=== PATIENT | female | born 1945 | race Caucasian/White ===

== ENCOUNTER → 2019-07-09 10:56 | Outpatient (CLI) | payer MEDICARE, BC, SELFPAY ==
[2019-07-09 11:44] LABS: Cholesterol 290 mg/dL (140-199); HDL Cholesterol 91 mg/dL (40-60); LDL Cholesterol Calculated 181 mg/dL (<100); Triglycerides 90 mg/dL (35-150)
[2019-07-09 11:46] LABS: Hemoglobin A1C% w Est Avg Glu 4.6 % (4.0-6.0)
== END ==
PROVIDERS: Visit Provider Family Medicine
DX: Z13.220 Encounter for screening for lipoid disorders (principal)
CPT/HCPCS: 36415; 80061; 83036

== ENCOUNTER → 2020-01-13 10:37 | Outpatient (CLI) | payer MEDICARE, BC, SELFPAY ==
[2020-01-13 11:59] LABS: Add Manual Diff / Slide Review NO; Basophils Absolute Auto 0 /uL (0-100); Basophils Percent Auto 0.7 % (0-2); Eosinophils Absolute Auto 100 /uL (0-450); Eosinophils Percent Auto 2.3 % (2-4); Hematocrit 35.7 % (36-46); Hemoglobin 12.1 g/dL (12.0-16.0); Lymphocytes Absolute Auto 1100 /uL (1100-4500); Lymphocytes Percent Auto 21.1 % (25-40); Mean Corpuscular HGB Conc 33.9 % (30-36); Mean Corpuscular Hemoglobin 31.9 PG (26-34); Mean Corpuscular Volume 94.2 fL (80-100); Monocytes Absolute Auto 500 /uL (0-900); Monocytes Percent Auto 9.1 % (3-14); Neutrophils Absolute Auto 3500 /uL (1500-7000); Neutrophils Percent Auto 66.8 % (50-75); Platelet Count 191 X10^3/uL (150-400); Red Blood Cell Count 3.79 X10^6/uL (4.0-5.2); Red Cell Distribution Width 13.8 % (11.6-14.8); White Blood Cell Count 5.2 X10^3/uL (4.5-11.0)
[2020-01-13 12:13] LABS: Hemoglobin A1C% w Est Avg Glu 4.5 % (4.0-6.0)
[2020-01-13 12:43] LABS: Alanine Aminotransferase 18 IU/L (<35); Albumin 4.2 g/dL (3.5-5.0); Albumin Globulin Ratio 1.9 (1.0-2.8); Alkaline Phosphatase 109 U/L (38-126); Aspartate Aminotransferase 27 IU/L (14-36); BUN Creatinine Ratio 30.8 (6-22); Bilirubin Total 0.3 mg/dL (0.2-1.3); Blood Urea Nitrogen 28 mg/dL (7-17); Calcium 9.2 mg/dL (8.4-10.2); Carbon Dioxide 26 mmol/L (22-32); Chloride 98 mmol/L (98-107); Cholesterol 228 mg/dL (140-199); Estimated Glomerular Filt Rate > 60.0 mL/min (>60); Globulin 2.2 g/dL (1.7-4.1); Glucose 87 mg/dL (80-110); HDL Cholesterol 81 mg/dL (40-60); HEMOLYSIS < 15 (0-50); LDL Cholesterol Calculated 135 mg/dL (<100); Sodium 130 mmol/L (137-145); Total Protein 6.4 g/dL (6.3-8.2); Triglycerides 60 mg/dL (35-150)
[2020-01-13 12:47] LABS: Potassium 5.5 mmol/L (3.4-5.1)
== END ==
PROVIDERS: Referring Provider Family Medicine; Visit Provider Family Medicine
DX: D64.9 Anemia, unspecified (principal); E78.5 Hyperlipidemia, unspecified; I10 Essential (primary) hypertension
CPT/HCPCS: 36415; 80053; 80061; 83036; 85025

== ENCOUNTER → 2020-04-28 14:22 | Outpatient (CLI) | payer MEDICARE, BC, SELFPAY ==
[2020-04-28 16:06] LABS: Alanine Aminotransferase 19 IU/L (<35); Albumin 4.5 g/dL (3.5-5.0); Albumin Globulin Ratio 1.9 (1.0-2.8); Alkaline Phosphatase 112 U/L (38-126); Aspartate Aminotransferase 26 IU/L (14-36); BUN Creatinine Ratio 37.5 (6-22); Bilirubin Total 0.3 mg/dL (0.2-1.3); Blood Urea Nitrogen 30 mg/dL (7-17); Calcium 9.4 mg/dL (8.4-10.2); Carbon Dioxide 23 mmol/L (22-32); Chloride 101 mmol/L (98-107); Estimated Glomerular Filt Rate > 60.0 mL/min (>60); Globulin 2.4 g/dL (1.7-4.1); Glucose 98 mg/dL (80-110); HEMOLYSIS < 15 (0-50); Phenytoin / Dilantin 15.3 ug/mL (10-20); Sodium 130 mmol/L (137-145); Total Protein 6.9 g/dL (6.3-8.2)
[2020-04-28 16:20] LABS: Potassium 5.5 mmol/L (3.4-5.1)
[2020-05-02 17:08] LABS: Levetiracetam Keppra 18.8 ug/mL (10.0-40.0)
== END ==
PROVIDERS: PCP Family Medicine; Referring Provider Family Medicine; Visit Provider Family Medicine
DX: I10 Essential (primary) hypertension (principal); R56.9 Unspecified convulsions
CPT/HCPCS: 36415; 80053; 80177; 80185

== ENCOUNTER → 2020-05-31 13:13 | Outpatient (CLI) | payer MEDICARE, BC, SELFPAY ==
[2020-05-31 13:46] LABS: COVID19 -Nasal RAPID Negative (Negative)
== END ==
PROVIDERS: PCP Family Medicine; Visit Provider Family Medicine
DX: R05 Cough (principal); Z11.8 Encounter for screening for other infectious and parasitic diseases
CPT/HCPCS: 87635

== ENCOUNTER → 2020-05-31 14:41 | Outpatient (CLI) | payer MEDICARE, BC, SELFPAY ==
--- NOTE | 2020-05-31 14:43 | DI.RAD.S_ITS ---
PROCEDURE: XR CHEST 2V INDICATIONS: Persistent and progressive productive cough TECHNIQUE: 2 views of the chest were acquired. COMPARISON: None. FINDINGS: Surgical changes and devices: None. Lungs and pleura: Lungs are clear. No pleural effusions or pneumothorax. Mediastinum: Mediastinal contours are normal. Heart size is normal. Bones and chest wall: No suspicious bony abnormalities. Soft tissues appear unremarkable. IMPRESSION: Normal for age, source of current cough symptoms is not seen. Dictated by: Dorian Lew M.D. on 05/31/2020 at 15:50 Approved by: Dorian Lew M.D. on 05/31/2020 at 15:50
== END ==
PROVIDERS: PCP Family Medicine; Referring Provider Family Medicine; Visit Provider Family Medicine
DX: J20.8 Acute bronchitis due to other specified organisms (principal); B96.89 Other specified bacterial agents as the cause of diseases classified elsewhere; R05 Cough; Z11.8 Encounter for screening for other infectious and parasitic diseases
CPT/HCPCS: 71046; 87635

== ENCOUNTER 2020-06-15 15:53 | Emergency (ER) | payer MEDICARE, BC, SELFPAY ==
[2020-06-15] VITALS (11 sets, daily range): BP systolic 178–211; BP diastolic 66–90; PULSE 70–80; RESP 12–19; TEMP 37.2; O2SAT 97–98
[2020-06-15 16:13] LABS: Add Manual Diff / Slide Review NO; Basophils Absolute Auto 100 /uL (0-100); Basophils Percent Auto 1.6 % (0-2); Eosinophils Absolute Auto 100 /uL (0-450); Eosinophils Percent Auto 1.5 % (2-4); Hematocrit 36.6 % (36-46); Hemoglobin 12.3 g/dL (12.0-16.0); Lymphocytes Absolute Auto 900 /uL (1100-4500); Lymphocytes Percent Auto 19.5 % (25-40); Mean Corpuscular HGB Conc 33.7 % (30-36); Mean Corpuscular Hemoglobin 32.4 PG (26-34); Mean Corpuscular Volume 96.2 fL (80-100); Monocytes Absolute Auto 400 /uL (0-900); Neutrophils Absolute Auto 3300 /uL (1500-7000); Neutrophils Percent Auto 69.4 % (50-75); Platelet Count 170 X10^3/uL (150-400); Red Blood Cell Count 3.81 X10^6/uL (4.0-5.2); Red Cell Distribution Width 14.2 % (11.6-14.8); White Blood Cell Count 4.7 X10^3/uL (4.5-11.0)
--- NOTE | 2020-06-15 16:24 | ED.GENADULT ---
HPI - General Adult General Chief complaint: Hypertension Stated complaint: ELEVATED BP Time Seen by Provider: 06/15/20 15:55 Source: patient Mode of arrival: Wheelchair Limitations: no limitations History of Present Illness HPI narrative: Patient is a 75-year-old female. 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 She found this out earlier this year. She states that she was switched to different chemotherapy medications after this was discovered. She states these chemotherapy medicines increased her blood pressure. She has been struggling with increased blood pressure since that time. She states that at baseline her systolic blood pressure is in the 180s range. She is on medications for these in this medicine has changed recently. She states she has been taking her medications as directed. Over the past couple days she has had occasional readings where her systolic blood pressure has been greater than 200. She states that when it is that elevated she does get somewhat lightheaded. She denies any chest pain. She has baseline dyspnea on exertion. She has some swelling in her right hand and in her toes on bilateral feet. She thinks that potentially there has been a mistake on the amount of blood pressure medicines that she is supposed to be taking. States that for an extended period of time she has been on 20 mg of lisinopril when she called to refill at the pharmacy stated that they had a prescription for her of 20 mg and also 5 mg tablets. Last time she was at her primary doctor she was told to increase her lisinopril to 10 mg. She thinks that potentially there was a mistake and she is not on a knife of this medication. She contacted the nurse advice line today regarding her blood pressure was informed to come to the emergency department. Related Data Home Medications Medication Instructions Recorded Confirmed acetaminophen 325 mg capsule 325 mg PO ONCE PRN 06/18/19 05/31/20 aspirin 81 mg tablet,delayed 81 mg PO DAILY 06/18/19 05/31/20 release bevacizumab 25 mg/mL intravenous IV Q3W ml 06/18/19 05/31/20 solution cholecalciferol (vitamin D3) 50 50 mcg PO DAILY 06/18/19 05/31/20 mcg (2,000 unit) capsule docusate sodium 100 mg capsule 100 mg PO BID 06/18/19 05/31/20 sennosides 8.6 mg capsule 8.6 mg PO BID PRN 06/18/19 05/31/20 spironolactone 25 mg tablet 25 mg PO tab 03/31/20 05/31/20 Previous Rx's Medication Instructions Recorded atorvastatin 40 mg tablet 40 mg PO BEDTIME #90 tab 08/20/19 amlodipine 10 mg tablet 10 mg PO DAILY #90 tab 01/17/20 levothyroxine 75 mcg tablet 75 mcg PO DAILY #90 tab 01/17/20 olanzapine 5 mg tablet 5 mg PO BID #180 tab 01/31/20 oxcarbazepine 150 mg tablet 225 mg PO DAILY #135 tab 01/31/20 lorazepam 0.5 mg tablet 0.5 mg PO BID PRN #20 tab 03/06/20 cetirizine 10 mg tablet See Rx Instructions .ROUTE 03/31/20 .COMPLEX #90 tab escitalopram oxalate 5 mg tablet 5 mg PO DAILY #90 tab 03/31/20 metoprolol tartrate 25 mg tablet 25 mg PO BID #180 tab 03/31/20 phenytoin sodium extended 100 mg 100 mg PO BID #270 cap 03/31/20 capsule levetiracetam 500 mg tablet 500 mg PO BID #180 tab 04/28/20 clarithromycin 500 mg tablet 500 mg PO BID #14 tab 05/31/20 lisinopril 10 1 tab PO DAILY #90 tab 06/13/20 mg-hydrochlorothiazide 12.5 mg tablet Allergies Allergy/AdvReac Type Severity Reaction Status Date / Time cephalexin Allergy Severe Hives Verified 05/31/20 13:11 lithium Allergy Severe Anaphylaxis Verified 05/31/20 13:11 ofloxacin [From Floxin] Allergy Severe Rash Verified 05/31/20 13:11 scopolamine Allergy Severe blisters Verified 05/31/20 13:11 [From Transderm-Scop] Sulfa (Sulfonamide Allergy Severe Rash Verified 05/31/20 13:11 Antibiotics) chlorthalidone Allergy Mild Itching Verified 05/31/20 13:11 all over divalproex sodium AdvReac Severe hair loss Verified 05/31/20 13:11 [From Depakote] Review of Systems Constitutional Constitutional: Denies fever(s) and Denies headache(s) Eyes Eyes: Denies change in vision ENT Ears, Nose, Mouth, and Throat: Reports dizziness and Denies headache(s) Cardiovascular Cardiovascular: Denies chest pain and Reports dyspnea on exertion Respiratory Respiratory: Reports dyspnea on exertion Gastrointestinal Gastrointestinal: Denies abdominal pain and Denies nausea Musculoskeletal Musculoskeletal: Denies arthralgias and Denies myalgias Integumentary/Breasts Skin/Breast: Denies rash Neurologic Neurologic: Reports dizziness and Denies headache(s) Hematologic/Lymphatic Hematologic/Lymphatic: Denies easy bleeding and Denies easy bruising Patient History Medical History Acute bacterial bronchitis Anemia (~2014) Bipolar disorder (~1985) Chicken pox Hearing loss Hyperlipidemia Hypertension Hyponatremia Measles Metastatic malignant neoplasm to ovary (~2013) Partial bilateral paralysis Seasonal allergic rhinitis Seizures (~2016) Skin cancer Surgical History Anesthesia H/O brain surgery H/O section H/O: hysterectomy Hx of tonsillectomy Previous back surgery S/P D&C (status post dilation and curettage) Family History (Updated 07/03/19 @ 19:41 by Indy Lambert) Father Cancer Mother Cancer Sister Cancer Social History Smoking Status: Never smoker alcohol intake: former substance use type: does not use Smoking Status: Never smoker alcohol intake frequency: 0-2 drinks per day Substance Use Type: does not use Exam Initial Vital Signs Initial Vital Signs: Vital Signs Pulse Rate 80 06/15/20 16:00 Respiratory Rate 18 06/15/20 16:00 Blood Pressure 195/86 H 06/15/20 16:00 Pulse Oximetry 97 06/15/20 16:00 Const General: cooperative and comfortable HENMT Head: normal to inspection and normocephalic Resp Effort & Inspection: normal respiratory effort Auscultation: clear to auscultation bilaterally Cardio Rate: regular rate Rhythm: regular rhythm GI Palpation: soft Skin Lesions: no lesions Rashes: no rashes Neuro General: patient alert, patient awake and patient oriented x3 Cognition: normal cognition Speech: speech normal Extrem General: normal to inspection and edema (Bilateral toes) Psych Appearance: well kempt Course Orders Ordered: ED Orders 06/15/20 16:06 Complete Blood Count AUTO DIFF Stat Comprehensive Metabolic Panel Stat Lipase Stat NT-proBNP (BNP-Adult 18+) Stat EKG-12 Lead Stat Vital Signs Vital signs: Vital Signs - 8 hr 06/15/20 16:00 06/15/20 16:29 06/15/20 16:30 Temperature Pulse Rate 80 76 75 Respiratory Rate 18 Blood Pressure 195/86 H 211/90 H Pulse Oximetry 97 97 98 06/15/20 16:34 06/15/20 16:39 06/15/20 16:40 Temperature 98.9 F Pulse Rate 70 77 78 Respiratory Rate 18 17 19 Blood Pressure 211/90 H 197/85 H Pulse Oximetry 97 98 97 06/15/20 16:50 06/15/20 16:51 Temperature Pulse Rate 72 73 Respiratory Rate 15 15 Blood Pressure 178/66 H Pulse Oximetry 98 98 Medical Decision Making Medical Records Medical records reviewed: Yes I reviewed the patient's medical records. Lab Data Lab results reviewed: Yes I reviewed the patient's lab results. Result diagrams: 06/15/20 16:06 06/15/20 16:06 Labs: Lab Results 06/15/20 06/15/20 06/15/20 Range/Units 16:06 16:06 16:06 WBC 4.7 (4.5-11.0) X10^3/uL RBC 3.81 L (4.0-5.2) X10^6/uL Hgb 12.3 (12.0-16.0) g/dL Hct 36.6 (36-46) % MCV 96.2 (80-100) fL MCH 32.4 (26-34) PG MCHC 33.7 (30-36) % RDW 14.2 (11.6-14.8) % Plt Count 170 (150-400) X10^3/uL Neut % (Auto) 69.4 (50-75) % Lymph % (Auto) 19.5 L (25-40) % [place] % (Auto) 8.0 (3-14) % Eos % (Auto) 1.5 L (2-4) % Baso % (Auto) 1.6 (0-2) % Neut # (Auto) 3300 (4488-0433) /uL Lymph # (Auto) 900 L (5966-8129) /uL [place] # (Auto) 400 (0-900) /uL Eos # (Auto) 100 (0-450) /uL Baso # (Auto) 100 (0-100) /uL Sodium 137 (137-145) mmol/L Potassium 5.1 (3.4-5.1) mmol/L Chloride 107 (98-107) mmol/L Carbon Dioxide 28 (22-32) mmol/L BUN 25 H (7-17) mg/dL Creatinine 0.79 (0.52-1.04) mg/dL Estimated GFR > 60.0 (>60) mL/min BUN/Creatinine Ratio 31.6 H (6-22) Glucose 107 (80-110) mg/dL Calcium 9.0 (8.4-10.2) mg/dL Total Bilirubin 0.4 (0.2-1.3) mg/dL AST 28 (14-36) IU/L ALT 25 (<35) IU/L Alkaline Phosphatase 96 (38-126) U/L NT-Pro-B Natriuret Pep 205 (<450) pg/mL Total Protein 6.5 (6.3-8.2) g/dL Albumin 4.0 (3.5-5.0) g/dL Globulin 2.5 (1.7-4.1) g/dL Albumin/Globulin Ratio 1.6 (1.0-2.8) Lipase 584 H (23-300) U/L ECG Data Attestation: I personally reviewed and interpreted this ECG as follows: Prior ECG tracings: not available for review Interpretation: Sinus rhythm Ventricular rate is 77 Left axis deviation Normal QRS Normal QTC No ST T wave changes MDM Narrative Medical decision making narrative: Patient shortness of breath/dyspnea on exertion is not new for her. She has very mild swelling to the toes of bilateral feet. She was hypertensive upon arrival however this improved without any intervention. Patient's labs and EKG are unremarkable. No signs of end-organ dysfunction secondary to the hypertension. Appears to be some issues with the amount of lisinopril that she is supposed to be taking. She initially was taken 20 mg but then it was decreased to 5 mg and then hydrochlorothiazide was added. She is unsure exactly how much she is supposed to take. Review of her primary doctor's note states that she should be on 5 mg. Informed her that she needed to contact her primary doctor's office to discuss the proper dosing of this medicine. It could potentially have been decreased because she was having a cough but I am unsure this. We did discuss high blood pressure. We did discuss things that she should return to the emergency department for. She is going to contact her primary doctor. She expressed understanding and agreement this plan. Discharge Plan Departure Patient Disposition: Home Clinical Impression: Hypertension Instructions: DI for High Blood Pressure Activity Restrictions/Additional Instructions: Recommend that you continue all of your medications as you are taking them currently. I do recommend that you contact your primary doctor's office tomorrow to discuss the proper dose of lisinopril that she should be taking. Take her blood pressure at home like we discussed. Return to the emergency department for any new or worsening symptoms Prescriptions: No Action oxcarbazepine 150 mg tablet 225 mg PO DAILY Qty: 135 RF: 2 olanzapine 5 mg tablet 5 mg PO BID Qty: 180 RF: 2 lorazepam 0.5 mg tablet 0.5 mg PO BID PRN (Reason: anxiety) Qty: 20 RF: 0 lisinopril-hydrochlorothiazide 10-12.5 mg tablet 1 tab PO DAILY Qty: 90 RF: 0 atorvastatin 40 mg tablet 40 mg PO BEDTIME Qty: 90 RF: 3 amlodipine 10 mg tablet 10 mg PO DAILY Qty: 90 RF: 1 levothyroxine 75 mcg tablet 75 mcg PO DAILY Qty: 90 RF: 1 spironolactone 25 mg tablet 25 mg PO RF: 0 escitalopram oxalate 5 mg tablet 5 mg PO DAILY Qty: 90 RF: 3 metoprolol tartrate 25 mg tablet 25 mg PO BID Qty: 180 RF: 3 phenytoin sodium extended 100 mg capsule 100 mg PO BID Qty: 270 RF: 2 cetirizine 10 mg tablet See Rx Instructions .ROUTE .COMPLEX Qty: 90 RF: 3 clarithromycin 500 mg tablet 500 mg PO BID Qty: 14 RF: 0 Avastin 25 mg/mL solution IV Q3W RF: 0 cholecalciferol (vitamin D3) 50 mcg (2,000 unit) capsule 50 mcg PO DAILY RF: 0 aspirin 81 mg tablet,delayed release (DR/EC) 81 mg PO DAILY RF: 0 docusate sodium 100 mg capsule 100 mg PO BID RF: 0 senna 8.6 mg capsule 8.6 mg PO BID PRNRF: 0 acetaminophen [Tylenol] 325 mg capsule 325 mg PO ONCE PRNRF: 0 levetiracetam 500 mg tablet 500 mg PO BID Qty: 180 RF: 1 Referrals: Austin Alanis, [Primary Care Provider] -
[2020-06-15 16:26] LABS: Alanine Aminotransferase 25 IU/L (<35); Albumin Globulin Ratio 1.6 (1.0-2.8); Alkaline Phosphatase 96 U/L (38-126); Aspartate Aminotransferase 28 IU/L (14-36); BUN Creatinine Ratio 31.6 (6-22); Bilirubin Total 0.4 mg/dL (0.2-1.3); Blood Urea Nitrogen 25 mg/dL (7-17); Carbon Dioxide 28 mmol/L (22-32); Chloride 107 mmol/L (98-107); Estimated Glomerular Filt Rate > 60.0 mL/min (>60); Globulin 2.5 g/dL (1.7-4.1); Glucose 107 mg/dL (80-110); HEMOLYSIS < 15 (0-50); Lipase 584 U/L (23-300); Potassium 5.1 mmol/L (3.4-5.1); Sodium 137 mmol/L (137-145); Total Protein 6.5 g/dL (6.3-8.2)
[2020-06-15 16:38] LABS: NT-proBNP (BNP-Adult 18+) 205 pg/mL (<450)
== END 2020-06-15 17:44 | disposition home or self-care (01) ==
PROVIDERS: Emergency Provider Emergency Medicine; PCP Family Medicine
DX: I10 Essential (primary) hypertension (principal); R42 Dizziness and giddiness; C79.60 Secondary malignant neoplasm of unspecified ovary; C71.9 Malignant neoplasm of brain, unspecified; R07.9 Chest pain, unspecified
CPT/HCPCS: 36415; 80053; 83690; 83880; 85025; 93005; 93010; 99281; 99284

== ENCOUNTER → 2020-08-09 10:43 | Outpatient (CLI) | payer MEDICARE, BC, SELFPAY ==
[2020-08-09 11:15] LABS: Add Manual Diff / Slide Review NO; Basophils Absolute Auto 0 /uL (0-100); Basophils Percent Auto 0.7 % (0-2); Eosinophils Absolute Auto 0 /uL (0-450); Eosinophils Percent Auto 0.8 % (2-4); Hematocrit 34.9 % (36-46); Hemoglobin 12.1 g/dL (12.0-16.0); Lymphocytes Absolute Auto 1200 /uL (1100-4500); Mean Corpuscular HGB Conc 34.8 % (30-36); Mean Corpuscular Hemoglobin 32.9 PG (26-34); Mean Corpuscular Volume 94.5 fL (80-100); Monocytes Absolute Auto 500 /uL (0-900); Monocytes Percent Auto 8.1 % (3-14); Neutrophils Absolute Auto 4200 /uL (1500-7000); Neutrophils Percent Auto 70.4 % (50-75); Platelet Count 172 X10^3/uL (150-400); Red Blood Cell Count 3.69 X10^6/uL (4.0-5.2); Red Cell Distribution Width 13.6 % (11.6-14.8)
[2020-08-09 11:25] LABS: Alanine Aminotransferase 20 IU/L (<35); Albumin 4.1 g/dL (3.5-5.0); Albumin Globulin Ratio 1.7 (1.0-2.8); Alkaline Phosphatase 106 U/L (38-126); Aspartate Aminotransferase 26 IU/L (14-36); BUN Creatinine Ratio 26.4 (6-22); Bilirubin Total 0.2 mg/dL (0.2-1.3); Blood Urea Nitrogen 23 mg/dL (7-17); Calcium 9.4 mg/dL (8.4-10.2); Carbon Dioxide 31 mmol/L (22-32); Chloride 102 mmol/L (98-107); Estimated Glomerular Filt Rate > 60.0 mL/min (>60); Globulin 2.4 g/dL (1.7-4.1); Glucose 94 mg/dL (80-110); HEMOLYSIS < 15 (0-50); Phenytoin / Dilantin 17.6 ug/mL (10-20); Potassium 4.5 mmol/L (3.4-5.1); Sodium 137 mmol/L (137-145); Total Protein 6.5 g/dL (6.3-8.2)
[2020-08-09 11:51] LABS: Free T4, Direct Thyroxine 1.12 ng/dL (0.78-2.19)
[2020-08-09 12:05] LABS: Thyroid Stimulating Hormone 0.989 uIU/mL (0.47-4.68)
[2020-08-16 02:07] LABS: Levetiracetam Keppra 18.2 ug/mL (10.0-40.0)
== END ==
PROVIDERS: PCP Family Medicine; Referring Provider Family Medicine; Visit Provider Family Medicine
DX: E03.9 Hypothyroidism, unspecified (principal); E87.1 Hypo-osmolality and hyponatremia; R56.9 Unspecified convulsions
CPT/HCPCS: 36415; 80053; 80177; 80185; 84439; 84443; 85025

== ENCOUNTER → 2020-10-30 11:46 | Outpatient (CLI) | payer MEDICARE, BC, SELFPAY ==
[2020-10-30 13:19] LABS: Alanine Aminotransferase 24 IU/L (<35); Albumin Globulin Ratio 1.7 (1.0-2.8); Alkaline Phosphatase 118 U/L (38-126); Aspartate Aminotransferase 30 IU/L (14-36); BUN Creatinine Ratio 32.5 (6-22); Bilirubin Total 0.2 mg/dL (0.2-1.3); Blood Urea Nitrogen 26 mg/dL (7-17); Calcium 9.6 mg/dL (8.4-10.2); Carbon Dioxide 21 mmol/L (22-32); Chloride 109 mmol/L (98-107); Estimated Glomerular Filt Rate > 60.0 mL/min (>60); Globulin 2.4 g/dL (1.7-4.1); Glucose 92 mg/dL (80-110); HEMOLYSIS < 15 (0-50); Phenytoin / Dilantin 14.9 ug/mL (10-20); Sodium 136 mmol/L (137-145); Total Protein 6.4 g/dL (6.3-8.2)
[2020-10-30 13:41] LABS: Potassium 5.6 mmol/L (3.4-5.1)
[2020-11-02 14:13] LABS: Levetiracetam Keppra 15.7 ug/mL (10.0-40.0)
== END ==
PROVIDERS: PCP Family Medicine; Referring Provider Family Medicine; Visit Provider Family Medicine
DX: E87.1 Hypo-osmolality and hyponatremia (principal); E87.5 Hyperkalemia; F31.9 Bipolar disorder, unspecified
CPT/HCPCS: 36415; 80053; 80177; 80185

== ENCOUNTER 2021-06-02 02:55 | Emergency (ER) | payer MEDICARE, BC, SELFPAY ==
[2021-06-02] VITALS (14 sets, daily range): BP systolic 182–205; BP diastolic 77–87; PULSE 85–96; RESP 18–20; TEMP 37.6; O2SAT 93–98; BMI 34.3
--- NOTE | 2021-06-02 03:01 | ED.NAVMDI ---
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 She states that she has had a poor appetite and nausea but no vomiting as well as left lower quadrant pain and frequent loose stools. She states that she lost control of her bowels at some point yesterday and today was too weak to make it to the bathroom and therefore urinated on the floor. She denies any fever or chills. She denies recent travel. She states that she was treated with antibiotics for urinary tract infection at some point relatively recently. Her last trip to the hospital was a few weeks ago at [facility] for evaluation of a breakthrough seizure and discharge diagnosis of seizure with urinary tract infection and was placed on antibiotics. She has a very poor historian but states she lives at home with family. She states that she is receiving some type of infusion every 3 weeks for the treatment of her ?colon cancer ?. Related Data Home Medications Medication Instructions Recorded Confirmed acetaminophen 325 mg capsule 325 mg PO ONCE PRN 06/18/19 08/09/20 (Tylenol) aspirin 81 mg tablet,delayed 81 mg PO DAILY 06/18/19 08/09/20 release bevacizumab 25 mg/mL intravenous IV Q3W ml 06/18/19 08/09/20 solution (Avastin) cholecalciferol (vitamin D3) 50 50 mcg PO DAILY 06/18/19 08/09/20 mcg (2,000 unit) capsule docusate sodium 100 mg capsule 100 mg PO BID 06/18/19 08/09/20 sennosides 8.6 mg capsule (senna) 8.6 mg PO BID PRN 06/18/19 08/09/20 lisinopril 10 mg tablet 10 mg PO DAILY tab 08/09/20 08/09/20 sodium zirconium cyclosilicate 5 5 g PO DAILY 08/09/20 08/09/20 gram oral powder packet ([facility]) Previous Rx's Medication Instructions Recorded cetirizine 10 mg tablet See Rx Instructions .ROUTE 03/31/20 .COMPLEX #90 tab escitalopram oxalate 5 mg tablet 5 mg PO DAILY #90 tab 03/31/20 amlodipine 5 mg tablet 5 mg PO BID #180 tab 06/20/20 metoprolol tartrate 50 mg tablet 50 mg PO BID #180 tab 06/20/20 atorvastatin 40 mg tablet 40 mg PO BEDTIME #90 tab 07/28/20 oxcarbazepine 150 mg tablet 225 mg PO DAILY #135 tab 07/28/20 olanzapine 5 mg tablet 5 mg PO BID #180 tab 11/07/20 levetiracetam 500 mg tablet 500 mg PO BID #180 tab 11/14/20 lorazepam 0.5 mg tablet 0.5 mg PO BID PRN #20 tab 01/04/21 levothyroxine 75 mcg tablet 75 mcg PO DAILY #90 tab 02/02/21 phenytoin sodium extended 100 mg 100 mg PO BID #270 cap 02/12/21 capsule hydrochlorothiazide 25 mg tablet 25 mg PO BID #180 tab 03/05/21 Allergies Allergy/AdvReac Type Severity Reaction Status Date / Time cephalexin Allergy Severe Hives Verified 08/30/20 10:52 lithium Allergy Severe Anaphylaxis Verified 08/30/20 10:52 ofloxacin [From Floxin] Allergy Severe Rash Verified 08/30/20 10:52 scopolamine Allergy Severe blisters Verified 08/30/20 10:52 [From Transderm-Scop] Sulfa (Sulfonamide Allergy Severe Rash Verified 08/30/20 10:52 Antibiotics) chlorthalidone Allergy Mild Itching Verified 08/30/20 10:52 all over divalproex sodium AdvReac Severe hair loss Verified 05/31/20 13:11 [From Depakote] lisinopril AdvReac Unknown Sensitive Verified 08/09/20 10:01 to it w/ combination drugs Review of Systems <Palmer Jordan, DO - Last Filed: 06/03/21 02:32> Review of Systems Narrative: GENERAL: See HPI HEENT: Denies sinus pain, ear pain, sore throat, difficulty swallowing, dizziness. RESPIRATORY: Denies dyspnea, cough, wheezing, hemoptysis, sputum. CARDIOVASCULAR: Denies chest pain, palpitations, orthopnea, edema, GASTROINTESTINAL: See HPI : Denies dysuria, frequency, incontinence, hematuria, urinary retention. MUSCULOSKELETAL: denies weakness, joint pain, or bony pain SKIN: Denies rash, skin lesions, or other NEUROLOGIC: See HPI PSYCHIATRIC: No concerning psychosocial issues. 12 point review of systems is negative except for those stated above Patient History <Palmer Jordan DO - Last Filed: 06/03/21 02:32> Medical History Acute bacterial bronchitis Anemia (~2014) Bipolar disorder (~1985) Chicken pox Hearing loss Hyperkalemia Hyperlipidemia Hypertension Hyponatremia Hypothyroidism Leg edema Measles Metastatic malignant neoplasm to ovary (~2013) Partial bilateral paralysis Seasonal allergic rhinitis Seizures (~2016) Skin cancer Surgical History Anesthesia H/O brain surgery H/O section H/O: hysterectomy Hx of tonsillectomy Previous back surgery S/P D&C (status post dilation and curettage) Family History Father Cancer Mother Cancer Sister Cancer Social History Smoking Status: Never smoker alcohol intake: former substance use type: does not use Smoking Status: Never smoker alcohol intake frequency: 0-2 drinks per day Substance Use Type: does not use Exam <Palmer Jordan DO - Last Filed: 06/03/21 02:32> Narrative Exam Narrative: GENERAL: 76] year old patient appears stated age. Well-developed patient, in mild distress. Pleasantly confused, GCS 14 HEAD: Atraumatic. Normocephalic. EYES: Pupils equal round and reactive. Extraocular motions intact. No scleral icterus. No injection or drainage. ENT: Dry mucous membranes. Nose without bleeding, purulent drainage. Throat without erythema, tonsillar hypertrophy or exudate. Airway patent. NECK: Trachea midline. Non tender CARDIOVASCULAR: Regular rate and rhythm without murmurs, gallops, or rubs. RESPIRATORY: Clear to auscultation. Breath sounds equal bilaterally. No wheezes, rales, or rhonchi. GASTROINTESTINAL: Abdomen soft, non-tender, nondistended. EXTREMITIES: No edema or joint tenderness. BACK: Nontender without deformity or crepitance. No flank tenderness. NEURO: AOx3. SKIN: No rash or erythema of visible areas Initial Vital Signs Initial Vital Signs: Vital Signs Temperature 99.7 F H 06/02/21 03:02 Pulse Rate 96 H 06/02/21 03:02 Respiratory Rate 20 06/02/21 03:02 Blood Pressure 194/86 H 06/02/21 03:02 Pulse Oximetry 97 06/02/21 03:02 <Basilio Lindsey, DO - Last Filed: 06/02/21 11:09> Initial Vital Signs Initial Vital Signs: Vital Signs Temperature 99.7 F H 06/02/21 03:02 Pulse Rate 96 H 06/02/21 03:02 Respiratory Rate 20 06/02/21 03:02 Blood Pressure 194/86 H 06/02/21 03:02 Pulse Oximetry 97 06/02/21 03:02 Course <Palmer Jordan, DO - Last Filed: 06/03/21 02:32> Course Additional Information: Records obtained from outside facility which demonstrate a detailed history of her cancer diagnoses and treatment. June 2014 she was treated at [facility] for a debulking surgery of stage III ovarian cancer followed by 5 cycles of carboplatin and paclitaxel. September 2016: Multifocal brain Mets, the largest 3 cm in the anterior left parietal lobe, CyberKnife with 5 lesions at [facility] July 2017: Progression of left posterior frontal mass, underwent resection of left parietal Mets consistent with metastatic carcinoma ovarian primary October 2017: Progression of right frontal lobe mass, given carboplatin 5 x 2 cycles November 2017: CyberKnife to right frontal, left frontal and left parietal masses October 2018 MRI brain: Slight increase in right frontal lesion 5 mm, new 6 mm enhancing focus in medial right parietal lobe November 2018-April 2020: Bevaciumab monotherapy January 18, 2021: Single fraction CyberKnife to 6 mm right paramedian parietal focus of enhancement March 21, 2021 CT: New exophytic bowel Mets protruding posterior from distal descending colon, colonoscopy showed sigmoid mass at 45 cm without obstruction, biopsy consistent with metastatic ovarian carcinoma. Patient referred to Dr. Domingo for bowel resection but not a good surgical candidate As of last visit patient had been quite weak, dizzy, uses walker and get short of breath walking short distances She had an incident in which her fell on her on the stairs and she has continued to decline since this episode. She is not a candidate for cytotoxic chemotherapy. She is currently receiving Bevacizumab 15mg/kg every 3 weeks Orders Ordered: Discontinued Medications Amlodipine Besylate (Amlodipine 5 Mg Tablet) 5 mg PO NOW ONE Stop: 06/02/21 08:45 Last Admin: 06/02/21 08:54 Dose: 5 mg Documented by: PERLITA Fosfomycin Tromethamine (Fosfomycin 3 Gm Packet) 3 gm PO NOW ONE Stop: 06/02/21 05:29 Last Admin: 06/02/21 07:01 Dose: 3 gm Documented by: GARY Hydrochlorothiazide (Hydrochlorothiazide 25 Mg Tablet) 25 mg PO NOW ONE Stop: 06/02/21 08:45 Last Admin: 06/02/21 08:53 Dose: 25 mg Documented by: PERLITA Sodium Chloride (Normal Saline 0.9%) 1,000 mls @ 1,000 mls/hr IV BOLUS ONE Stop: 06/02/21 04:01 Last Infusion: 06/02/21 06:01 Dose: 0 mls/hr Documented by: Admin: 06/02/21 03:37 Dose: 1,000 mls/hr Documented by: GARY Sodium Chloride (Normal Saline 0.9%) 1,000 mls @ 1,000 mls/hr IV BOLUS ONE Stop: 06/02/21 07:48 Last Infusion: 06/02/21 10:02 Dose: 0 mls/hr Documented by: Admin: 06/02/21 07:01 Dose: 1,000 mls/hr Documented by: GARY Levetiracetam (Levetiracetam 250 Mg Tablet) 500 mg PO NOW ONE Stop: 06/02/21 08:43 Last Admin: 06/02/21 08:54 Dose: 500 mg Documented by: PERLITA Phenytoin Sodium (Phenytoin Er 100 Mg Capsule) 100 mg PO DAILY ONE Stop: 06/02/21 08:43 Last Admin: 06/02/21 08:53 Dose: 100 mg Documented by: PERLITA Vital Signs Vital signs: Vital Signs - 8 hr 06/02/21 03:23 06/02/21 03:30 06/02/21 04:07 Pulse Rate 88 89 94 H Respiratory Rate Blood Pressure 182/77 H Pulse Oximetry 96 96 95 06/02/21 04:30 06/02/21 04:59 06/02/21 05:00 Pulse Rate 88 88 86 Respiratory Rate Blood Pressure 190/81 H Pulse Oximetry 98 97 98 06/02/21 05:30 06/02/21 05:34 06/02/21 06:00 Pulse Rate 94 H 89 85 Respiratory Rate Blood Pressure 185/82 H Pulse Oximetry 93 98 97 06/02/21 08:15 06/02/21 08:16 06/02/21 08:20 Pulse Rate 91 H 87 89 Respiratory Rate Blood Pressure 205/84 H 199/81 H Pulse Oximetry 95 98 98 06/02/21 09:33 Pulse Rate 92 H Respiratory Rate 18 Blood Pressure 199/87 H Pulse Oximetry 98 <Basilio Lindsey, DO - Last Filed: 06/02/21 11:09> Orders Ordered: Discontinued Medications Amlodipine Besylate (Amlodipine 5 Mg Tablet) 5 mg PO NOW ONE Stop: 06/02/21 08:45 Last Admin: 06/02/21 08:54 Dose: 5 mg Documented by: PERLITA Fosfomycin Tromethamine (Fosfomycin 3 Gm Packet) 3 gm PO NOW ONE Stop: 06/02/21 05:29 Last Admin: 06/02/21 07:01 Dose: 3 gm Documented by: GARY Hydrochlorothiazide (Hydrochlorothiazide 25 Mg Tablet) 25 mg PO NOW ONE Stop: 06/02/21 08:45 Last Admin: 06/02/21 08:53 Dose: 25 mg Documented by: PERLITA Sodium Chloride (Normal Saline 0.9%) 1,000 mls @ 1,000 mls/hr IV BOLUS ONE Stop: 06/02/21 04:01 Last Infusion: 06/02/21 06:01 Dose: 0 mls/hr Documented by: Admin: 06/02/21 03:37 Dose: 1,000 mls/hr Documented by: GARY Sodium Chloride (Normal Saline 0.9%) 1,000 mls @ 1,000 mls/hr IV BOLUS ONE Stop: 06/02/21 07:48 Last Infusion: 06/02/21 10:02 Dose: 0 mls/hr Documented by: Admin: 06/02/21 07:01 Dose: 1,000 mls/hr Documented by: GARY Levetiracetam (Levetiracetam 250 Mg Tablet) 500 mg PO NOW ONE Stop: 06/02/21 08:43 Last Admin: 06/02/21 08:54 Dose: 500 mg Documented by: PERLITA Phenytoin Sodium (Phenytoin Er 100 Mg Capsule) 100 mg PO DAILY ONE Stop: 06/02/21 08:43 Last Admin: 06/02/21 08:53 Dose: 100 mg Documented by: PERLITA Vital Signs Vital signs: Vital Signs - 8 hr 06/02/21 03:23 06/02/21 03:30 06/02/21 04:07 Pulse Rate 88 89 94 H Respiratory Rate Blood Pressure 182/77 H Pulse Oximetry 96 96 95 06/02/21 04:30 06/02/21 04:59 06/02/21 05:00 Pulse Rate 88 88 86 Respiratory Rate Blood Pressure 190/81 H Pulse Oximetry 98 97 98 06/02/21 05:30 06/02/21 05:34 06/02/21 06:00 Pulse Rate 94 H 89 85 Respiratory Rate Blood Pressure 185/82 H Pulse Oximetry 93 98 97 06/02/21 08:15 06/02/21 08:16 06/02/21 08:20 Pulse Rate 91 H 87 89 Respiratory Rate Blood Pressure 205/84 H 199/81 H Pulse Oximetry 95 98 98 06/02/21 09:33 Pulse Rate 92 H Respiratory Rate 18 Blood Pressure 199/87 H Pulse Oximetry 98 MDM - Nausea/Vomiting/Diarrhea <Palmer Jordan DO - Last Filed: 06/03/21 02:32> Lab Data Result diagrams: 06/02/21 03:15 06/02/21 03:15 Labs: Lab Results 06/02/21 06/02/21 06/02/21 Range/Units 03:15 03:15 03:45 WBC 10.4 (4.5-11.0) X10^3/uL RBC 3.44 L (4.0-5.2) X10^6/uL Hgb 11.1 L (12.0-16.0) g/dL Hct 32.1 L (36-46) % MCV 93.6 (80-100) fL MCH 32.4 (26-34) PG MCHC 34.6 (30-36) % RDW 13.3 (11.6-14.8) % Plt Count 169 (150-400) X10^3/uL Neut % (Auto) 81.6 H (50-75) % Lymph % (Auto) 8.6 L (25-40) % [place] % (Auto) 9.2 (3-14) % Eos % (Auto) 0.2 L (2-4) % Baso % (Auto) 0.4 (0-2) % Neut # (Auto) 8500 H (1838-2587) /uL Lymph # (Auto) 900 L (8387-6953) /uL [place] # (Auto) 1000 H (0-900) /uL Eos # (Auto) 0 (0-450) /uL Baso # (Auto) 0 (0-100) /uL Sodium 131 L (137-145) mmol/L Potassium 4.6 (3.4-5.1) mmol/L Chloride 98 (98-107) mmol/L Carbon Dioxide 23 (22-32) mmol/L BUN 24 H (7-17) mg/dL Creatinine 0.81 (0.52-1.04) mg/dL Estimated GFR > 60.0 (>60) mL/min BUN/Creatinine Ratio 29.6 H (6-22) Glucose 115 H (80-110) mg/dL Calcium 9.2 (8.4-10.2) mg/dL Magnesium 1.6 (1.6-2.3) mg/dL Total Bilirubin 0.4 (0.2-1.3) mg/dL AST 22 (14-36) IU/L ALT 18 (<35) IU/L Alkaline Phosphatase 123 (38-126) U/L Total Creatine Kinase 38 (30-135) U/L CK-MB (CK-2) TNP CK-MB (CK-2) Rel Index TNP Troponin I 0.045 H (0.01-0.034) ng/mL NT-Pro-B Natriuret Pep 428 (<450) pg/mL Total Protein 6.9 (6.3-8.2) g/dL Albumin 4.1 (3.5-5.0) g/dL Globulin 2.8 (1.7-4.1) g/dL Albumin/Globulin Ratio 1.5 (1.0-2.8) Lipase 67 (23-300) U/L Urine Color Yellow Urine Appearance Cloudy Urine pH 5.0 (4.5-8.0) Ur Specific [place] 1.015 (1.000-1.035) Urine Protein 1+ H (Negative) Urine Glucose (UA) Negative (Negative) g/dL Urine Ketones Negative (NEGATIVE) Urine Occult Blood Trace-intact (Negative) Urine Nitrate Positive H (Negative) Urine Bilirubin Negative (NEGATIVE) Urine Urobilinogen 0.2 (0.2) E.U./dL Ur Leukocyte Esterase 2+ H (NEGATIVE) Urine RBC 0-1/hpf (0-5/HPF) Urine WBC 30-100/hpf H (0-5/HPF) Ur Squamous Epith Cells 0-1 /hpf (0-5/HPF) Urine Bacteria Many (>30) H (None) Ur Culture Indicated? Specimen cultured SARS-CoV-2 (PCR) (Negative) 06/02/21 Range/Units 03:48 WBC (4.5-11.0) X10^3/uL RBC (4.0-5.2) X10^6/uL Hgb (12.0-16.0) g/dL Hct (36-46) % MCV (80-100) fL MCH (26-34) PG MCHC (30-36) % RDW (11.6-14.8) % Plt Count (150-400) X10^3/uL Neut % (Auto) (50-75) % Lymph % (Auto) (25-40) % [place] % (Auto) (3-14) % Eos % (Auto) (2-4) % Baso % (Auto) (0-2) % Neut # (Auto) (7554-6567) /uL Lymph # (Auto) (1031-5585) /uL [place] # (Auto) (0-900) /uL Eos # (Auto) (0-450) /uL Baso # (Auto) (0-100) /uL Sodium (137-145) mmol/L Potassium (3.4-5.1) mmol/L Chloride (98-107) mmol/L Carbon Dioxide (22-32) mmol/L BUN (7-17) mg/dL Creatinine (0.52-1.04) mg/dL Estimated GFR (>60) mL/min BUN/Creatinine Ratio (6-22) Glucose (80-110) mg/dL Calcium (8.4-10.2) mg/dL Magnesium (1.6-2.3) mg/dL Total Bilirubin (0.2-1.3) mg/dL AST (14-36) IU/L ALT (<35) IU/L Alkaline Phosphatase (38-126) U/L Total Creatine Kinase (30-135) U/L CK-MB (CK-2) CK-MB (CK-2) Rel Index Troponin I (0.01-0.034) ng/mL NT-Pro-B Natriuret Pep (<450) pg/mL Total Protein (6.3-8.2) g/dL Albumin (3.5-5.0) g/dL Globulin (1.7-4.1) g/dL Albumin/Globulin Ratio (1.0-2.8) Lipase (23-300) U/L Urine Color Urine Appearance Urine pH (4.5-8.0) Ur Specific [place] (1.000-1.035) Urine Protein (Negative) Urine Glucose (UA) (Negative) g/dL Urine Ketones (NEGATIVE) Urine Occult Blood (Negative) Urine Nitrate (Negative) Urine Bilirubin (NEGATIVE) Urine Urobilinogen (0.2) E.U./dL Ur Leukocyte Esterase (NEGATIVE) Urine RBC (0-5/HPF) Urine WBC (0-5/HPF) Ur Squamous Epith Cells (0-5/HPF) Urine Bacteria (None) Ur Culture Indicated? SARS-CoV-2 (PCR) Negative (Negative) Imaging Data CT scan - head: Radiologist's Impression: Mild left front of parietal vasogenic edema with left frontal craniectomy. No mass effect or midline shift. 2 mm hyperdensity in the left superior frontal lobe subcortical white matter could represent tiny hemorrhage. Similar hyperdensity in the posterior right parietal lobe also possible for tiny hemorrhage. CT scan - abdomen/pelvis: Radiologist's Impression: Focal wall thickening and inflammation of the distal descending colon MDM Narrative Medical decision making narrative: Patient has minimal change in how she feels with the above-stated therapies. She has had a gradual decline over many weeks if not months but significant decline over the past few days with weakness, lightheadedness, poor appetite and diarrhea. She has thus far been unable to provide a stool sample. She has been given a L of fluids. CT of the head demonstrates what could be hemorrhage, patient denies any headache and has no focal neurologic findings, will repeat head CT at 9:00 a.m. and compare. Patient signed out to Dr. Lindsey for final disposition <Basilio Lindsey, - Last Filed: 06/02/21 11:09> Lab Data Labs: Lab Results 06/02/21 06/02/21 06/02/21 Range/Units 03:15 03:15 03:45 WBC 10.4 (4.5-11.0) X10^3/uL RBC 3.44 L (4.0-5.2) X10^6/uL Hgb 11.1 L (12.0-16.0) g/dL Hct 32.1 L (36-46) % MCV 93.6 (80-100) fL MCH 32.4 (26-34) PG MCHC 34.6 (30-36) % RDW 13.3 (11.6-14.8) % Plt Count 169 (150-400) X10^3/uL Neut % (Auto) 81.6 H (50-75) % Lymph % (Auto) 8.6 L (25-40) % [place] % (Auto) 9.2 (3-14) % Eos % (Auto) 0.2 L (2-4) % Baso % (Auto) 0.4 (0-2) % Neut # (Auto) 8500 H (2086-2317) /uL Lymph # (Auto) 900 L (0001-3463) /uL [place] # (Auto) 1000 H (0-900) /uL Eos # (Auto) 0 (0-450) /uL Baso # (Auto) 0 (0-100) /uL Sodium 131 L (137-145) mmol/L Potassium 4.6 (3.4-5.1) mmol/L Chloride 98 (98-107) mmol/L Carbon Dioxide 23 (22-32) mmol/L BUN 24 H (7-17) mg/dL Creatinine 0.81 (0.52-1.04) mg/dL Estimated GFR > 60.0 (>60) mL/min BUN/Creatinine Ratio 29.6 H (6-22) Glucose 115 H (80-110) mg/dL Calcium 9.2 (8.4-10.2) mg/dL Magnesium 1.6 (1.6-2.3) mg/dL Total Bilirubin 0.4 (0.2-1.3) mg/dL AST 22 (14-36) IU/L ALT 18 (<35) IU/L Alkaline Phosphatase 123 (38-126) U/L Total Creatine Kinase 38 (30-135) U/L CK-MB (CK-2) TNP CK-MB (CK-2) Rel Index TNP Troponin I 0.045 H (0.01-0.034) ng/mL NT-Pro-B Natriuret Pep 428 (<450) pg/mL Total Protein 6.9 (6.3-8.2) g/dL Albumin 4.1 (3.5-5.0) g/dL Globulin 2.8 (1.7-4.1) g/dL Albumin/Globulin Ratio 1.5 (1.0-2.8) Lipase 67 (23-300) U/L Urine Color Yellow Urine Appearance Cloudy Urine pH 5.0 (4.5-8.0) Ur Specific [place] 1.015 (1.000-1.035) Urine Protein 1+ H (Negative) Urine Glucose (UA) Negative (Negative) g/dL Urine Ketones Negative (NEGATIVE) Urine Occult Blood Trace-intact (Negative) Urine Nitrate Positive H (Negative) Urine Bilirubin Negative (NEGATIVE) Urine Urobilinogen 0.2 (0.2) E.U./dL Ur Leukocyte Esterase 2+ H (NEGATIVE) Urine RBC 0-1/hpf (0-5/HPF) Urine WBC 30-100/hpf H (0-5/HPF) Ur Squamous Epith Cells 0-1 /hpf (0-5/HPF) Urine Bacteria Many (>30) H (None) Ur Culture Indicated? Specimen cultured SARS-CoV-2 (PCR) (Negative) 06/02/21 Range/Units 03:48 WBC (4.5-11.0) X10^3/uL RBC (4.0-5.2) X10^6/uL Hgb (12.0-16.0) g/dL Hct (36-46) % MCV (80-100) fL MCH (26-34) PG MCHC (30-36) % RDW (11.6-14.8) % Plt Count (150-400) X10^3/uL Neut % (Auto) (50-75) % Lymph % (Auto) (25-40) % [place] % (Auto) (3-14) % Eos % (Auto) (2-4) % Baso % (Auto) (0-2) % Neut # (Auto) (1741-0579) /uL Lymph # (Auto) (8689-1976) /uL [place] # (Auto) (0-900) /uL Eos # (Auto) (0-450) /uL Baso # (Auto) (0-100) /uL Sodium (137-145) mmol/L Potassium (3.4-5.1) mmol/L Chloride (98-107) mmol/L Carbon Dioxide (22-32) mmol/L BUN (7-17) mg/dL Creatinine (0.52-1.04) mg/dL Estimated GFR (>60) mL/min BUN/Creatinine Ratio (6-22) Glucose (80-110) mg/dL Calcium (8.4-10.2) mg/dL Magnesium (1.6-2.3) mg/dL Total Bilirubin (0.2-1.3) mg/dL AST (14-36) IU/L ALT (<35) IU/L Alkaline Phosphatase (38-126) U/L Total Creatine Kinase (30-135) U/L CK-MB (CK-2) CK-MB (CK-2) Rel Index Troponin I (0.01-0.034) ng/mL NT-Pro-B Natriuret Pep (<450) pg/mL Total Protein (6.3-8.2) g/dL Albumin (3.5-5.0) g/dL Globulin (1.7-4.1) g/dL Albumin/Globulin Ratio (1.0-2.8) Lipase (23-300) U/L Urine Color Urine Appearance Urine pH (4.5-8.0) Ur Specific [place] (1.000-1.035) Urine Protein (Negative) Urine Glucose (UA) (Negative) g/dL Urine Ketones (NEGATIVE) Urine Occult Blood (Negative) Urine Nitrate (Negative) Urine Bilirubin (NEGATIVE) Urine Urobilinogen (0.2) E.U./dL Ur Leukocyte Esterase (NEGATIVE) Urine RBC (0-5/HPF) Urine WBC (0-5/HPF) Ur Squamous Epith Cells (0-5/HPF) Urine Bacteria (None) Ur Culture Indicated? SARS-CoV-2 (PCR) Negative (Negative) Imaging Data repeat CT head: Radiologist's Impression: [address] [address] [address] Scan Report Signed Patient: Jade Power MR#: [id number] : 1945 Acct:[id number] Age/Sex: 76 / F Date of Service: 06/02/21 Loc: ED Accession Number: [id number] ?? Procedure: CT head/brain wo con Ordering Provider: Palmer Jordan D.O. PROCEDURE:? CT HEAD/BRAIN WO CON ? INDICATIONS:? abnormalities on initial exam, repeat ? TECHNIQUE:? Noncontrast 4.5 mm thick angled axial sections acquired from the foramen magnum to the vertex, with coronal and sagittal reformats.? For radiation dose reduction, the following was used:? automated exposure control, adjustment of mA and/or kV according to patient size.? ? COMPARISON:? [facility], CT, CT HEAD WITHOUT CONTRAST, 03/22/2020, 15:53.? [facility], MR, MR BRAIN WITH/WITHOUT CONTRAST, 03/21/2021, 11:08.? [facility], CT, CT HEAD WITHOUT CONTRAST, 05/08/2021, 17:38.? [facility], CT, CT HEAD WITHOUT CONTRAST, 04/03/2021, 9:27.? [facility], CT, CT HEAD/BRAIN WO CON, 06/02/2021, 3:54. ? FINDINGS:? Image quality:? Excellent.? ? CSF spaces:? Basal cisterns are patent.? No extra-axial fluid collections.? The ventricles are symmetric in size and shape.? ? Brain:? On the examination performed earlier in the morning, there can be seen a hyperdense focus within the barcenas-white matter of the left frontal lobe.? This is stable on the current study.? Several additional similar-appearing hyperdense foci can be seen involving both cerebral hemispheres, primarily at the barcenas-white matter junction.? When comparison is made to prior CT examinations, these findings are stable. ? Volume loss and gliotic change can be seen at the site of the previously seen resection. ? No intracranial bleeds or masses.? There is cerebral volume loss for age, with resultant ventricular and sulcal prominence.? There are periventricular and deep white matter chronic small vessel ischemic changes.? There is intracranial internal carotid artery atherosclerosis.? ? Skull and face:? Left superior craniotomy change is seen.? Calvarium and visualized facial bones appear intact, without suspicious lesions.? ? Sinuses:? Visualized sinuses and mastoids are clear.? IMPRESSION:? No acute intracranial hemorrhage is seen.? ? Several foci of stable calcification can be seen involving both cerebral hemispheres.? The hyperdense focus described on the prior report is attributed to 1 of these stable calcifications. ? Stable left frontal resection change with overlying craniotomy. ? ? Dictated by: Reji Simms M.D. on 06/02/2021 at 8:15 ? ? Approved by: Reji Simms M.D. on 06/02/2021 at 8:21? MDM Narrative Medical decision making narrative: Patient has minimal change in how she feels with the above-stated therapies. She has had a gradual decline over many weeks if not months but significant decline over the past few days with weakness, lightheadedness, poor appetite and diarrhea. She has thus far been unable to provide a stool sample. She has been given a L of fluids. CT of the head demonstrates what could be hemorrhage, patient denies any headache and has no focal neurologic findings, will repeat head CT at 9:00 a.m. and compare. Patient signed out to Dr. Lindsey for final disposition Dr lindsey: Received turned over. Reviewed patient's history and physical and labs and radiologic studies performed up to this point. Patient does have a nitrite positive urine. She did receive a single dose of fosfomycin which should cover her for this infection. There was a urine culture pending at the time of her discharge and she was informed of this. The repeat head CT shows that the concern about a bleed from the prior head CT is actually a calcification. She is aware of the other new findings consistent with metastatic disease. Patient was unable to provide a stool sample for us. We will hold on any antibiotics for this issue for now. A long discussion with her regarding her home living situation. Also discussed this with her son on all who picked her up from the hospital. On Friday she is going to contact her primary doctor and also her oncologist to potentially discuss other living situations. She was given return precautions. Both her and her son-in-law expressed understanding and agreement. Discharge Plan Departure Patient Disposition: Home Clinical Impression: Urinary tract infection, Weakness, Metastatic cancer Instructions: How to Prevent Falls Activity Restrictions/Additional Instructions: He received an antibiotic here in the emergency department that should treat your urinary tract infection. This very well could be the cause of your weakness. Unfortunately you were unable to provide us a stool sample so we will hold on any treatment of this with antibiotics. You could consider an anti diarrheal medicine. Continue to take all of your medications as directed. We gave you and your morning dose of Keppra/Levetiracetam, Dilantin/Phenytoin, amlodipine, hydrochlorothiazide. You will need to take the rest of your morning medicines and your evening medicines as directed. I do recommend that you contact your primary doctor for follow-up. You should consider talking with your primary doctor and your oncologist about either home health or potentially other living situations such as nursing facility or assisted living. Return to the emergency department for any new or worsening symptoms Prescriptions: No Action olanzapine 5 mg tablet 5 mg PO BID Qty: 180 2RF levetiracetam 500 mg tablet 500 mg PO BID Qty: 180 3RF lorazepam 0.5 mg tablet 0.5 mg PO BID PRN (Reason: anxiety) Qty: 20 1RF levothyroxine 75 mcg tablet 75 mcg PO DAILY Qty: 90 1RF phenytoin sodium extended 100 mg capsule 100 mg PO BID Qty: 270 2RF Rx Instructions: 2 capsule QAM, 1 capsules QPM hydrochlorothiazide 25 mg tablet 25 mg PO BID Qty: 180 0RF escitalopram oxalate 5 mg tablet 5 mg PO DAILY Qty: 90 3RF cetirizine 10 mg tablet See Rx Instructions .ROUTE .COMPLEX Qty: 90 3RF Dose Instruction: TAKE 1 TABLET BY MOUTH DAILY NEEDED FOR ALLERGY SYMPTOMS Rx Instructions: TAKE 1 TABLET BY MOUTH DAILY NEEDED FOR ALLERGY SYMPTOMS atorvastatin 40 mg tablet 40 mg PO BEDTIME Qty: 90 3RF oxcarbazepine 150 mg tablet 225 mg PO DAILY Qty: 135 3RF Avastin 25 mg/mL solution IV Q3W 0RF cholecalciferol (vitamin D3) 50 mcg (2,000 unit) capsule 50 mcg PO DAILY 0RF aspirin 81 mg tablet,delayed release (DR/EC) 81 mg PO DAILY 0RF docusate sodium 100 mg capsule 100 mg PO BID 0RF senna 8.6 mg capsule 8.6 mg PO BID PRN0RF acetaminophen [Tylenol] 325 mg capsule 325 mg PO ONCE PRN0RF amlodipine 5 mg tablet 5 mg PO BID Qty: 180 3RF metoprolol tartrate 50 mg tablet 50 mg PO BID Qty: 180 3RF lisinopril 10 mg tablet 10 mg PO DAILY 0RF Lokelma 5 gram powder in packet 5 g PO DAILY 0RF Referrals: Austin Alanis, [Primary Care Provider] -
[2021-06-02 03:23] LABS: Add Manual Diff / Slide Review NO; Basophils Absolute Auto 0 /uL (0-100); Basophils Percent Auto 0.4 % (0-2); Eosinophils Absolute Auto 0 /uL (0-450); Eosinophils Percent Auto 0.2 % (2-4); Hematocrit 32.1 % (36-46); Hemoglobin 11.1 g/dL (12.0-16.0); Lymphocytes Absolute Auto 900 /uL (1100-4500); Lymphocytes Percent Auto 8.6 % (25-40); Mean Corpuscular HGB Conc 34.6 % (30-36); Mean Corpuscular Hemoglobin 32.4 PG (26-34); Mean Corpuscular Volume 93.6 fL (80-100); Monocytes Absolute Auto 1000 /uL (0-900); Monocytes Percent Auto 9.2 % (3-14); Neutrophils Absolute Auto 8500 /uL (1500-7000); Neutrophils Percent Auto 81.6 % (50-75); Platelet Count 169 X10^3/uL (150-400); Red Blood Cell Count 3.44 X10^6/uL (4.0-5.2); Red Cell Distribution Width 13.3 % (11.6-14.8); White Blood Cell Count 10.4 X10^3/uL (4.5-11.0)
[2021-06-02 03:32] LABS: Alanine Aminotransferase 18 IU/L (<35); Albumin 4.1 g/dL (3.5-5.0); Albumin Globulin Ratio 1.5 (1.0-2.8); Alkaline Phosphatase 123 U/L (38-126); Aspartate Aminotransferase 22 IU/L (14-36); BUN Creatinine Ratio 29.6 (6-22); Bilirubin Total 0.4 mg/dL (0.2-1.3); Blood Urea Nitrogen 24 mg/dL (7-17); Calcium 9.2 mg/dL (8.4-10.2); Carbon Dioxide 23 mmol/L (22-32); Chloride 98 mmol/L (98-107); Creatine Kinase 38 U/L (30-135); Estimated Glomerular Filt Rate > 60.0 mL/min (>60); Globulin 2.8 g/dL (1.7-4.1); Glucose 115 mg/dL (80-110); HEMOLYSIS < 15 (0-50); Lipase 67 U/L (23-300); Magnesium 1.6 mg/dL (1.6-2.3); Potassium 4.6 mmol/L (3.4-5.1); Sodium 131 mmol/L (137-145); Total Protein 6.9 g/dL (6.3-8.2)
[2021-06-02] MEDS: SODIUM CHLORIDE 0.9% 1,000 ML 1000 ML IV ×2 (03:37→07:01)
--- NOTE | 2021-06-02 03:38 | DI.CT.S_ITS ---
PROCEDURE: CT HEAD/BRAIN WO CON INDICATIONS: confused, weak, known brain mets s/p resection TECHNIQUE: Noncontrast 4.5 mm thick angled axial sections acquired from the foramen magnum to the vertex, with coronal and sagittal reformats. For radiation dose reduction, the following was used: automated exposure control, adjustment of mA and/or kV according to patient size. COMPARISON: [facility], CT, CT BRAIN WO CON, 03/13/2017, 14:37. [facility], MR, MR BRAIN WITH/WITHOUT CONTRAST, 03/21/2021, 11:08. [facility], CT, CT HEAD WITHOUT CONTRAST, 03/22/2020, 15:53. [facility], CT, CT HEAD/BRAIN WO CON, 06/02/2021, 9:04. [facility], CT, CT HEAD WITHOUT CONTRAST, 05/08/2021, 17:38. FINDINGS: Image quality: Excellent. CSF spaces: Basal cisterns are patent. No extra-axial fluid collections. The ventricles are symmetric in size and shape. Brain: Prior left frontal lobe resection changes are seen. No intracranial bleeds or masses. There is cerebral volume loss for age, with resultant ventricular and sulcal prominence. There are periventricular and deep white matter chronic small vessel ischemic changes. There is intracranial internal carotid artery atherosclerosis. Several foci of parenchymal calcification can be seen, which are largely seen at the barcenas-white matter junctions. These are stable compared to prior CT examinations. Skull and face: Craniotomy change can be seen involving the left frontal lobe. Calvarium and visualized facial bones appear intact, without suspicious lesions. Sinuses: Visualized sinuses and mastoids are clear. IMPRESSION: Areas focal parenchymal calcification can be seen, which are similar to prior examinations. On the subsequently performed short-term follow-up head CT examination, the small foci of hyperdensity described on the preliminary report seen within do not change and are also attributed to calcification. Left frontal lobe resection changes, with overlying craniotomy change. Note: Differences between the current report and the preliminary report are described above. Please note that the preliminary radiologist did not have access to the outside head CT examinations demonstrating stable parenchymal calcifications. Dictated by: Reji Simms M.D. on 06/02/2021 at 8:45 Approved by: Reji Simms M.D. on 06/02/2021 at 8:51
--- NOTE | 2021-06-02 03:38 | DI.CT.S_ITS ---
PROCEDURE: CT CHEST ABD PEL W CON INDICATIONS: profound weakness, N/V/D, LLQ pain TECHNIQUE: After the administration of oral and intravenous contrast, axial sections acquired from the supraclavicular neck to the pubic symphysis. Coronal and sagittal reformats were performed. For radiation dose reduction, the following was used: automated exposure control, adjustment of mA and/or kV according to patient size. COMPARISON: [facility], CT, CT CHEST ABDOMEN PELVIS WITH CONTRAST, 07/16/2017, 12:42. [facility], CT, CT CHEST ABDOMEN PELVIS WITH TRAUMA, 04/03/2021, 9:27. [facility], CT, CT CHEST ABDOMEN PELVIS WITH CONTRAST, 03/21/2021, 10:44. [facility], CT, CT CHEST ABDOMEN PELVIS WITH CONTRAST, 09/20/2020, 10:35. [facility], CT, CT CHEST ABDOMEN PELVIS WITH CONTRAST, 06/21/2020, 10:28. [facility], CT, CT HEAD/BRAIN WO CON, 06/02/2021, 9:04. [facility], CT, CT HEAD/BRAIN WO CON, 06/02/2021, 3:54. FINDINGS: Image quality: Excellent. CHEST: Lower Neck: No enlarged lymph nodes. Thyroid: Within normal limits. Axillae: No enlarged lymph nodes. Chest Wall: Unremarkable. Lungs and Airways: There is a 3 mm soft tissue nodule seen within the right lower lobe, as on series 3, image 182. The lungs otherwise appear clear. Pleura: No pneumothorax or pleural effusions. Heart: Heart size is normal. No pericardial effusion. Thoracic Vessels: The aorta and pulmonary arteries demonstrate normal size. Mediastinum and Lelia: Within the superior posterior right mediastinum, there is a mildly hyperenhancing lymph node seen that measures 22 x 14 mm in greatest axial dimension, which is increased in size compared to 03/26/2021, weighted measured 13 x 12 mm, when measured in a similar fashion. Esophagus: No wall thickening. There is a small hiatal hernia. ABDOMEN: Liver: Unremarkable. Gallbladder: Unremarkable. Biliary ducts: Unremarkable. Pancreas: Unremarkable. Spleen: Unremarkable. Incidental note is made of an accessory splenule along the hilum of the primary spleen. Adrenal Glands: There is a right adrenal mass seen that measures 2.9 by 1.9 cm in greatest axial dimension. On the prior study, this measured 2.6 x 1.6, when measured in a similar fashion. Kidneys and Ureters: Along the lateral aspect of the right kidney, there is a simple appearing exophytic cyst that measures 1.5 cm. The kidneys demonstrate normal size and enhance symmetrically. Stomach and Bowel: Along the descending colon, there is again seen a partially enhancing solid appearing mass that measures 4.2 x 4.4 cm in greatest axial dimension, with a craniocaudal extent of 5.4 cm. On the prior study this measured 3.8 x 2.9 x 5.1 cm. Surrounding inflammatory change can be seen. No associated chalino perforation can be seen. No dilated loops of small bowel are seen. Mild scattered colonic diverticulosis is seen, without findings of active diverticulitis. Peritoneum: No abnormal intraperitoneal fluid. No free air. Ventral Wall: A fat containing supraumbilical midline ventral wall hernia can be seen. Abdominal wall laxity can be seen inferior to the umbilicus, yet without chalino hernia. Abdominal Nodes: No retroperitoneal or mesenteric adenopathy by size criteria. Vessels: Aorta and inferior vena cava are normal in size. PELVIS: Pelvic Organs: This patient is status post hysterectomy. No adnexal masses are seen. Bladder: Unremarkable. Pelvic Nodes: No enlarged lymph nodes. Miscellaneous: No inguinal hernias are seen. Bones: Stable anterior wedge deformities of T3 through T6 can be seen. Associated accentuated thoracic kyphosis can be seen. No acute fractures are seen. Degenerative changes are seen throughout, which are worst at the L4-L5 level. IMPRESSION: Increasing size of the known descending colonic mass, with surrounding inflammatory change. No chalino findings of perforation or abscess can be seen. Increased size of a mediastinal lymph node, which is concerning for metastatic disease. There is an enlarging right adrenal mass seen, which is also concerning for metastatic disease. There is a 3 mm right lower lobe pulmonary nodule seen, which has grown over time and is also suspicious for early metastatic disease. No focal suspicious liver abnormality is seen. Incidental note is made of: Stable thoracic anterior wedge deformities, with associated accentuated kyphosis Small hiatal hernia Accessory splenule Simple appearing right renal cyst Fat containing supraumbilical hernia Laxity of the anterior abdominal wall seen inferior to the umbilicus Focal L4-L5 degenerative change Diverticulosis, without active diverticulitis Hysterectomy Note: No significant discrepancy from the preliminary report. Dictated by: Reji Simms M.D. on 06/02/2021 at 8:52 Approved by: Reji Simms M.D. on 06/02/2021 at 9:03
[2021-06-02 03:44] LABS: NT-proBNP (BNP-Adult 18+) 428 pg/mL (<450); Troponin I 0.045 ng/mL (0.01-0.034)
[2021-06-02 03:55] LABS: Appearance Urine UA CLOUDY; Bilirubin Urine UA NEGATIVE (NEGATIVE); Color Urine UA YELLOW; Glucose Urine UA NEGATIVE (Negative); Ketones Urine UA NEGATIVE (NEGATIVE); Leukocyte Esterase Urine UA 2+ (NEGATIVE); Nitrite Urine UA POSITIVE (Negative); Occult Blood Urine UA TRACE-INTACT (Negative); Protein Urine UA 1+ (Negative); Specific Gravity Urine UA 1.015 (1.000-1.035); Urobilinogen Urine UA 0.2 E.U./dL (0.2)
[2021-06-02 04:00] LABS: Bacteria Urine Many (>30); Culture Indicated Urine Specimen Cultured; RBC Urine 0-1/HPF (0-5/HPF); Squamous Epithelial Cell Urine 0-1 /HPF (0-5/HPF); WBC Urine 30-100/HPF (0-5/HPF)
[2021-06-02 04:56] LABS: COVID19 - ADMIT (NP swab/PCR) Negative (Negative)
[2021-06-02] MEDS: FOSFOMYCIN 3 GM PACKET PO (07:01)
--- NOTE | 2021-06-02 08:48 | PC.NURSE ---
Spoke with pt's daughter this morning, states mother took all of her evening meds at 1900 last night. Needs HTN and seizure meds this morning. Daughter states mom is increasingly confused over the last 2-3 days. MD aware.
[2021-06-02] MEDS: hydroCHLOROthiazide 25 MG TABLET PO (08:53)
[2021-06-02] MEDS: PHENYTOIN ER 100 MG CAPSULE PO (08:53)
[2021-06-02] MEDS: levETIRAcetam 250 MG TABLET 500 MG PO (08:54)
[2021-06-02] MEDS: AMLODIPINE 5 MG TABLET PO (08:54)
--- NOTE | 2021-06-02 09:00 | DI.CT.S_ITS ---
PROCEDURE: CT HEAD/BRAIN WO CON INDICATIONS: abnormalities on initial exam, repeat TECHNIQUE: Noncontrast 4.5 mm thick angled axial sections acquired from the foramen magnum to the vertex, with coronal and sagittal reformats. For radiation dose reduction, the following was used: automated exposure control, adjustment of mA and/or kV according to patient size. COMPARISON: [facility], CT, CT HEAD WITHOUT CONTRAST, 03/22/2020, 15:53. [facility], MR, MR BRAIN WITH/WITHOUT CONTRAST, 03/21/2021, 11:08. [facility], CT, CT HEAD WITHOUT CONTRAST, 05/08/2021, 17:38. [facility], CT, CT HEAD WITHOUT CONTRAST, 04/03/2021, 9:27. [facility], CT, CT HEAD/BRAIN WO CON, 06/02/2021, 3:54. FINDINGS: Image quality: Excellent. CSF spaces: Basal cisterns are patent. No extra-axial fluid collections. The ventricles are symmetric in size and shape. Brain: On the examination performed earlier in the morning, there can be seen a hyperdense focus within the barcenas-white matter of the left frontal lobe. This is stable on the current study. Several additional similar-appearing hyperdense foci can be seen involving both cerebral hemispheres, primarily at the barcenas-white matter junction. When comparison is made to prior CT examinations, these findings are stable. Volume loss and gliotic change can be seen at the site of the previously seen resection. No intracranial bleeds or masses. There is cerebral volume loss for age, with resultant ventricular and sulcal prominence. There are periventricular and deep white matter chronic small vessel ischemic changes. There is intracranial internal carotid artery atherosclerosis. Skull and face: Left superior craniotomy change is seen. Calvarium and visualized facial bones appear intact, without suspicious lesions. Sinuses: Visualized sinuses and mastoids are clear. IMPRESSION: No acute intracranial hemorrhage is seen. Several foci of stable calcification can be seen involving both cerebral hemispheres. The hyperdense focus described on the prior report is attributed to 1 of these stable calcifications. Stable left frontal resection change with overlying craniotomy. Dictated by: Reji Simms M.D. on 06/02/2021 at 8:15 Approved by: Reji Simms M.D. on 06/02/2021 at 8:21
--- NOTE | 2021-06-02 10:13 | PC.NURSE ---
Assisted pt with dressing. tolerated well. assisted into wheelchair. awaiting family member from [facility] for transport home
== END 2021-06-02 11:16 | disposition home or self-care (01) ==
PROVIDERS: Emergency Medicine; Emergency Provider Emergency Medicine; PCP Family Medicine
DX: N39.0 Urinary tract infection, site not specified (principal); R53.1 Weakness; C56.9 Malignant neoplasm of unspecified ovary; C79.31 Secondary malignant neoplasm of brain; Z20.822 Contact with and (suspected) exposure to COVID-19
CPT/HCPCS: 36415; 70450; 71260; 74177; 80053; 81001; 82550; 83690; 83735; 83880; 84484; 85025; 87077; 87086; 87186; 87635; 96360; 96361; 99284; C9803; Q9967